=== PATIENT | male | born 1955 | race Caucasian/White ===

== ENCOUNTER 2016-11-01 19:33 | Emergency (ER) | payer OTHER ==
[~2016-11-01] VITALS: Ht 177.8 cm; Wt 82.1 kg
[~2016-11-01 19:33] MED LIST: ATIVAN1 MG PO; CARAFATE1 G1 PO; DULOXETINE HCL60 MG PO; HYDROCODONE BIT1 T11 PO; LORAZEPAM1 MG PO; METOCLOPRAMIDE10 M1 PO; PREDNICOT20 MG PO; PRILOSEC20 MG PO; ZITHROMAX Z PA250 MG PO
[2016-11-01] MEDS ORDERED: VITAMIN D50000 I3 PO (19:45)
[2016-11-01] MEDS ORDERED: LISINOPRIL30 MG PO (19:45)
[2016-11-01 20:32] LABS: BASO # 0.1 10*3/uL (0.0-0.1); BASO % 0.7 % (0.0-1.0); EOS # 0.3 10*3/uL (0.0-0.4); EOS % 2.1 % (1.0-4.0); HEMOGLOBIN 14.7 g/dl (14.0-18.0); IG # 0.1 10*3/uL (0.0-0.1); LYMPH # 4.9 10*3/uL (1.3-4.4); LYMPH % 40.2 % (27.0-41.0); MEAN CELL VOLUME 89.6 fl (80.0-94.0); MEAN CORPUSCULAR HGB 30.6 pg (27.0-31.0); MEAN CORPUSCULAR HGB CONC 34.2 g/dl (33.0-37.0); MEAN PLATELET VOLUME 10.3 fl (9.6-12.3); MONO # 0.7 10*3/uL (0.1-1.0); NEUT # 6.1 10*3/uL (2.3-7.9); NEUT % 50.5 % (47.0-73.0); PLATELET COUNT AUTOMATED 304 10*3/uL (130-400); RED CELL DISTRI WIDTH 12.6 % (0-14.5); WHITE BLOOD COUNT 12.1 10*3/uL (4.8-10.8)
[2016-11-01 20:46] LABS: BUN 11 mg/dl (7-24); CARBON DIOXIDE 25 mmol/L (21-32); CHLORIDE 101 mmol/L (98-107); CPK 241 U/L (39-308); EST GLOM FILT AFRICAN AMERICAN > 60 ml/min; GLUCOSE 96 mg/dL (65-99); POTASSIUM 3.7 mmol/L (3.5-5.1); SODIUM 138 mmol/L (136-145)
[2016-11-01 21:31] LABS: BILIRUBIN NEGATIVE (NEGATIVE); BLOOD NEGATIVE (NEGATIVE); CLARITY CLEAR (CLEAR); COLOR YELLOW (YELLOW); GLUCOSE NEGATIVE (NEGATIVE); KETONE NEGATIVE (NEGATIVE); LEUKO ESTERASE NEGATIVE (NEGATIVE); NITRITE NEGATIVE (NEGATIVE); PH 5.5 (5.0-9.0); PROTEIN NEGATIVE (NEGATIVE); UROBILINOGEN 0.2 E.U./dl (0.2-1.0)
[2016-11-01 21:38] LABS: MUCOUS TRACE; RBC 0-2 rbc/hpf (0-2); URINE REFLEX COMMENT NO (NO)
[2016-11-01] MEDS ORDERED: ROBAXIN500 M1 PO (21:45)
[2016-11-06] MEDS ORDERED: ATIVAN1 MG PO (05:49)
[2016-11-24] MEDS ORDERED: BAYER ASPIRIN C81 MG PO (20:45)
[2016-11-24] MEDS ORDERED: ZYRTEC10 M3 PO (20:45)
[2016-11-24] MEDS ORDERED: PRINIVIL10 MG PO (20:45)
[2016-11-24] MEDS ORDERED: VISTARIL50 MG PO (20:46)
[2016-11-24] MEDS ORDERED: REGLAN10 M1 PO (20:46)
[2016-11-24] MEDS ORDERED: CYMBALTA60 MG PO (20:46)
[2016-11-24] MEDS ORDERED: LOPRESSOR25 MG PO (22:56)
[2016-11-24] MEDS ORDERED: ATIVAN1 MG PO (22:56)
== END 2016-11-01 21:48 | disposition home or self-care (01) ==
LOC: ED 19:33
PROVIDERS: Emergency Medicine
DX: S39.012A Strain of muscle, fascia and tendon of lower back, initial encounter (principal); F17.200 Nicotine dependence, unspecified, uncomplicated; K21.9 Gastro-esophageal reflux disease without esophagitis; Z98.890 Other specified postprocedural states; Z88.0 Allergy status to penicillin; X58.XXXA Exposure to other specified factors, initial encounter; Y93.89 Activity, other specified; Y92.89 Other specified places as the place of occurrence of the external cause; Y99.9 Unspecified external cause status

== ENCOUNTER 2017-03-03 11:35 | Inpatient (IN) | payer OTHER ==
[2017-03-03] VITALS (7 sets, daily range): BP systolic 119–132; BP diastolic 60–91
[~2017-03-03] VITALS: Ht 180.3 cm; Wt 80.8 kg
--- NOTE | ~2017-03-03 | CON ---
[place], [place] REPORT OF CONSULTATION NAME: KERI LYNNE UNIT #: [id number] ROOM: 411 DOCTOR: MARYLOU DE LA CRUZ MD BIRTHDATE: [birth year] DOS: 03/04/2017 PSYCHIATRIC CONSULT CHIEF COMPLAINT: "I just have so much anxiety and depression." HISTORY OF PRESENT ILLNESS: This is a 61-year-old white male who was admitted due to significant chest pain, with shortness of breath and diaphoresis. The patient has been worked up organically and the workup so far to date has been negative. The patient does endorse significant depression with poor sleep and appetite, energy, anhedonia, hopeless, helpless feelings, crying spells. He also has significant panic attacks that occur with substernal chest pain, arm tingling, shortness of breath, diaphoresis and a sense of impending doom. The patient has been actively seeing Dr. Darion Reyes as a counselor and has most recently been placed on Cymbalta 60 mg a day and hydroxyzine. He reports these meds have been ineffective, though controlling the symptomatology. He reports multiple stressors including having found his son in 2010 of an apparent suicide. 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 PAST MEDICAL HISTORY: Remarkable for hypertension, depression, GERD, palpitations. MENTAL STATUS: He is alert and oriented to person, place, and time. Mood is depressed with anxious overtones. There is no hypomania or eulalio. There are no psychotic symptoms. Memory is relatively fully intact. DIAGNOSES: Major depression recurrent and panic disorder. PLAN: I will increase his Cymbalta from 60 mg at bedtime to 30 mg in the morning and 60 mg at night to attempt to maximize potential benefit. Maintain the hydroxyzine for now, may want to consider low dose Klonopin, although I do tend to avoid benzos. He reports having an appointment with Dr. Darion Reyes on 03/30/2017. He may want to call the office to see if this can be moved up any sooner. MARYLOU DE LA CRUZ MD CM:CONSTR:REPORT OF CONSULTATION [id number] 03/05/17 0024 interface
--- NOTE | ~2017-03-03 | EKG ---
[place], [place] ELECTROCARDIOGRAM REPORT NAME: KERI LYNNE UNIT #: [id number] ROOM: 411 DOCTOR: LYNSEY ARREDONDO MD BIRTHDATE: [birth year] DOS: 03/03/2017 TIME: 1235. FINDINGS: Normal sinus rhythm with leftward axis. Normal EKG. LYNSEY ARREDONDO MD CM:EKGRPT:ELECTROCARDIOGRAM REPORT [id number] LYNSEY ARREDONDO MD
[~2017-03-03 11:35] MED LIST changes: +BAYER ASPIRIN C81 MG PO; +CYMBALTA60 MG PO; +LISINOPRIL30 MG PO; +LOPRESSOR25 MG PO; +PRINIVIL10 MG PO; +REGLAN10 M1 PO; +ROBAXIN500 M1 PO; +VISTARIL50 MG PO; +VITAMIN D50000 I3 PO; +ZYRTEC10 M3 PO
[2017-03-03 12:45] LABS: BASO # 0.1 10*3/uL (0.0-0.1); BASO % 0.9 % (0.0-1.0); EOS # 0.3 10*3/uL (0.0-0.4); EOS % 2.1 % (1.0-4.0); HEMATOCRIT 38.5 % (42.0-52.0); HEMOGLOBIN 13.3 g/dl (14.0-18.0); IG # 0.2 10*3/uL (0.0-0.1); LYMPH # 3.9 10*3/uL (1.3-4.4); LYMPH % 30.7 % (27.0-41.0); MEAN CELL VOLUME 88.7 fl (80.0-94.0); MEAN CORPUSCULAR HGB 30.6 pg (27.0-31.0); MEAN CORPUSCULAR HGB CONC 34.5 g/dl (33.0-37.0); MEAN PLATELET VOLUME 9.5 fl (9.6-12.3); MONO # 0.7 10*3/uL (0.1-1.0); MONO % 5.6 % (3.0-9.0); NEUT # 7.6 10*3/uL (2.3-7.9); NEUT % 59.5 % (47.0-73.0); PLATELET COUNT AUTOMATED 330 10*3/uL (130-400); RED BLOOD COUNT 4.34 10*6/uL (4.50-5.90); RED CELL DISTRI WIDTH 12.8 % (0-14.5); WHITE BLOOD COUNT 12.8 10*3/uL (4.8-10.8)
[2017-03-03 13:02] LABS: ALBUMIN 3.7 gm/dl (3.1-4.5); ALKALINE PHOSPHATASE 96 U/L (45-117); BILIRUBIN, TOTAL 0.3 mg/dl (0.2-1.0); BUN 17 mg/dl (7-24); CARBON DIOXIDE 22 mmol/L (21-32); CHLORIDE 101 mmol/L (98-107); EST GLOM FILT AFRICAN AMERICAN 51 ml/min; GLUCOSE 79 mg/dL (65-99); MAGNESIUM 1.1 mg/dL (1.5-2.1); POTASSIUM 4.4 mmol/L (3.5-5.1); SGOT/AST 31 IU/L (3-35); SGPT/ALT 26 U/L (12-78); SODIUM 134 mmol/L (136-145); TOTAL PROTEIN 7.4 gm/dL (6.4-8.2)
[2017-03-03 13:06] LABS: TROPONIN I < 0.015 ng/ml (<0.045)
[2017-03-03] MEDS ORDERED: VITAMIN D22000 UNIT PO (18:47)
[2017-03-03] MEDS ORDERED: HYDR25T PO (18:48)
[2017-03-03] MEDS ORDERED: CLARITIN10 MG PO (18:48)
[2017-03-04] VITALS: BP 127/90
[2017-03-04 06:58] LABS: BASO # 0.1 10*3/uL (0.0-0.1); BASO % 0.9 % (0.0-1.0); EOS # 0.5 10*3/uL (0.0-0.4); EOS % 3.5 % (1.0-4.0); HEMATOCRIT 35.1 % (42.0-52.0); HEMOGLOBIN 12.2 g/dl (14.0-18.0); IG # 0.1 10*3/uL (0.0-0.1); LYMPH # 4.4 10*3/uL (1.3-4.4); LYMPH % 34.3 % (27.0-41.0); MEAN CELL VOLUME 88.4 fl (80.0-94.0); MEAN CORPUSCULAR HGB 30.7 pg (27.0-31.0); MEAN CORPUSCULAR HGB CONC 34.8 g/dl (33.0-37.0); MEAN PLATELET VOLUME 9.8 fl (9.6-12.3); MONO # 0.9 10*3/uL (0.1-1.0); MONO % 6.8 % (3.0-9.0); NEUT # 6.8 10*3/uL (2.3-7.9); NEUT % 53.4 % (47.0-73.0); PLATELET COUNT AUTOMATED 350 10*3/uL (130-400); RED BLOOD COUNT 3.97 10*6/uL (4.50-5.90); WHITE BLOOD COUNT 12.8 10*3/uL (4.8-10.8)
[2017-03-04 07:25] LABS: HEMOGLOBIN A1c 5.7 % (4.8-5.6)
[2017-03-04 07:32] LABS: ALBUMIN 3.4 gm/dl (3.1-4.5); BILIRUBIN, TOTAL 0.5 mg/dl (0.2-1.0); MAGNESIUM 2.6 mg/dL (1.5-2.1); PHOSPHOROUS 2.6 mg/dL (2.5-4.9); POTASSIUM 4.4 mmol/L (3.5-5.1); TOTAL PROTEIN 6.9 gm/dL (6.4-8.2)
[2017-03-04 07:33] LABS: PROTHROMBIN TIME 10.1 SECONDS (9.0-12.4)
[2017-03-04 07:39] LABS: FREE T4 1.13 ng/dl (0.76-1.46); THYROID STIM HORMONE (HS) 1.55 uIU/ml (0.358-4.75)
[2017-03-04 08:00] VITALS: BP 109/71; BP 120/70
[2017-03-04 09:18] LABS: FOLIC ACID 9.59 ng/mL (>5.38); VITAMIN D, 25-HYDROXY 34.1 ng/mL (30-100)
[2017-03-04] MEDS ORDERED: DULOXETINE HCL30 MG PO (11:07)
== END 2017-03-04 12:30 | disposition home or self-care (01) | DRG 683 ==
LOC: ED 11:35 → 4E 16:08 → EDHOLD 16:08 → 4E 16:46
PROVIDERS: Emergency Medicine; Internal Medicine
DX: N17.0 Acute kidney failure with tubular necrosis (principal); E87.1 Hypo-osmolality and hyponatremia; R65.10 Systemic inflammatory response syndrome (SIRS) of non-infectious origin without acute organ dysfunction; F33.9 Major depressive disorder, recurrent, unspecified; E83.42 Hypomagnesemia; F41.9 Anxiety disorder, unspecified; D64.9 Anemia, unspecified; K21.9 Gastro-esophageal reflux disease without esophagitis; I10 Essential (primary) hypertension; F41.0 Panic disorder [episodic paroxysmal anxiety]; F17.210 Nicotine dependence, cigarettes, uncomplicated; Z71.6 Tobacco abuse counseling; Z88.0 Allergy status to penicillin; Z79.82 Long term (current) use of aspirin; Z79.899 Other long term (current) drug therapy

== ENCOUNTER 2018-01-08 20:22 | Emergency (ER) | payer OTHER ==
[~2018-01-08] VITALS: Ht 177.8 cm; Wt 93.9 kg
[~2018-01-08 20:22] MED LIST changes: +CLARITIN10 MG PO; +DULOXETINE HCL30 MG PO; +HYDR25T PO; +VITAMIN D22000 UNIT PO
[2018-01-08 21:25] LABS: HEMATOCRIT 42.6 % (42.0-52.0); HEMOGLOBIN 14.8 g/dl (14.0-18.0); MEAN CELL VOLUME 85.9 fl (80.0-94.0); MEAN CORPUSCULAR HGB 29.8 pg (27.0-31.0); MEAN CORPUSCULAR HGB CONC 34.7 g/dl (33.0-37.0); MEAN PLATELET VOLUME 10.3 fl (9.6-12.3); PLATELET COUNT AUTOMATED 376 10*3/uL (130-400); RED BLOOD COUNT 4.96 10*6/uL (4.50-5.90); RED CELL DISTRI WIDTH 13.9 % (0-14.5); WHITE BLOOD COUNT 16.9 10*3/uL (4.8-10.8)
[2018-01-08 21:44] LABS: ALBUMIN 4.1 gm/dl (3.1-4.5); CREATININE 1.72 mg/dL (0.70-1.30); POTASSIUM 3.9 mmol/L (3.5-5.1); TOTAL PROTEIN 8.2 gm/dL (6.4-8.2)
[2018-01-08 21:59] LABS: ATYPICAL LYMPHS 1 % (0-0); PLATELET SUFFICIENCY NORMAL (NORMAL); TOTAL CELLS COUNTED 100 #CELLS
== END 2018-01-08 23:26 | disposition left against medical advice (07) ==
LOC: ED 20:22
PROVIDERS: Physician Assistant
DX: E86.0 Dehydration (principal); R30.0 Dysuria; F17.200 Nicotine dependence, unspecified, uncomplicated; Z88.0 Allergy status to penicillin; Z53.21 Procedure and treatment not carried out due to patient leaving prior to being seen by health care provider

== ENCOUNTER 2018-01-10 19:58 | Emergency (ER) | payer OTHER ==
[~2018-01-10] VITALS: Ht 177.8 cm; Wt 93.9 kg
[2018-01-10 20:46] LABS: BASO # 0.1 10*3/uL (0.0-0.1); BASO % 0.5 % (0.0-1.0); EOS # 0.4 10*3/uL (0.0-0.4); EOS % 2.1 % (1.0-4.0); HEMATOCRIT 42.4 % (42.0-52.0); HEMOGLOBIN 14.8 g/dl (14.0-18.0); LYMPH # 4.6 10*3/uL (1.3-4.4); LYMPH % 24.5 % (27.0-41.0); MEAN CELL VOLUME 84.8 fl (80.0-94.0); MEAN CORPUSCULAR HGB 29.6 pg (27.0-31.0); MEAN CORPUSCULAR HGB CONC 34.9 g/dl (33.0-37.0); MEAN PLATELET VOLUME 10.3 fl (9.6-12.3); MONO # 1.3 10*3/uL (0.1-1.0); MONO % 7.2 % (3.0-9.0); NEUT # 12.1 10*3/uL (2.3-7.9); NEUT % 64.8 % (47.0-73.0); PLATELET COUNT AUTOMATED 395 10*3/uL (130-400); RED CELL DISTRI WIDTH 13.8 % (0-14.5); WHITE BLOOD COUNT 18.7 10*3/uL (4.8-10.8)
[2018-01-10 21:01] LABS: ALBUMIN 4.1 gm/dl (3.1-4.5); CREATININE 1.6 mg/dL (0.70-1.30); POTASSIUM 4.2 mmol/L (3.5-5.1); TOTAL PROTEIN 8.2 gm/dL (6.4-8.2)
[2018-01-10 21:21] LABS: BILIRUBIN NEGATIVE (NEGATIVE); BLOOD NEGATIVE (NEGATIVE); CLARITY CLEAR (CLEAR); COLOR YELLOW (YELLOW); GLUCOSE NEGATIVE (NEGATIVE); KETONE NEGATIVE (NEGATIVE); LEUKO ESTERASE NEGATIVE (NEGATIVE); NITRITE NEGATIVE (NEGATIVE); PH 5.5 (5.0-9.0); UROBILINOGEN 0.2 E.U./dl (0.2-1.0)
[2018-01-10 21:46] LABS: BACTERIA TRACE
[2018-01-10] MEDS ORDERED: PROSCAR5 M1 PO (22:07)
[2018-01-10] MEDS ORDERED: FLOMAX0.4 MG PO (22:07)
[2018-01-10] MEDS ORDERED: CIPRO500 MG PO (22:07)
== END 2018-01-10 22:16 | disposition home or self-care (01) ==
LOC: ED 19:58
PROVIDERS: Physician Assistant
DX: N41.9 Inflammatory disease of prostate, unspecified (principal); F17.200 Nicotine dependence, unspecified, uncomplicated; Z79.899 Other long term (current) drug therapy; Z79.82 Long term (current) use of aspirin; Z88.0 Allergy status to penicillin; Z87.442 Personal history of urinary calculi

== ENCOUNTER → 2018-01-16 | Outpatient (CLI) | payer OTHER ==
[~2018-01-16] MED LIST changes: +CIPRO500 MG PO; +FLOMAX0.4 MG PO; +PROSCAR5 M1 PO
[2018-01-16 15:22] LABS: BASO # 0.1 10*3/uL (0.0-0.1); BASO % 0.8 % (0.0-1.0); EOS # 0.4 10*3/uL (0.0-0.4); HEMATOCRIT 36.9 % (42.0-52.0); HEMOGLOBIN 12.6 g/dl (14.0-18.0); LYMPH # 2.9 10*3/uL (1.3-4.4); LYMPH % 21.9 % (27.0-41.0); MEAN CELL VOLUME 87.6 fl (80.0-94.0); MEAN CORPUSCULAR HGB 29.9 pg (27.0-31.0); MEAN CORPUSCULAR HGB CONC 34.1 g/dl (33.0-37.0); MONO # 0.9 10*3/uL (0.1-1.0); MONO % 6.5 % (3.0-9.0); NEUT # 8.7 10*3/uL (2.3-7.9); NEUT % 66.4 % (47.0-73.0); PLATELET COUNT AUTOMATED 373 10*3/uL (130-400); RED BLOOD COUNT 4.21 10*6/uL (4.50-5.90); RED CELL DISTRI WIDTH 14.3 % (0-14.5); WHITE BLOOD COUNT 13.1 10*3/uL (4.8-10.8)
[2018-01-16 15:49] LABS: ALBUMIN 3.6 gm/dl (3.1-4.5); CREATININE 1.48 mg/dL (0.70-1.30); POTASSIUM 4.3 mmol/L (3.5-5.1); TOTAL PROTEIN 7.4 gm/dL (6.4-8.2)
== END | disposition home or self-care (01) ==
LOC: LAB 14:56 → US 15:00
PROVIDERS: Urology
DX: Z12.5 Encounter for screening for malignant neoplasm of prostate (principal); N50.3 Cyst of epididymis; I10 Essential (primary) hypertension; D40.0 Neoplasm of uncertain behavior of prostate; Z90.79 Acquired absence of other genital organ(s)

== ENCOUNTER → 2018-02-17 | Outpatient (CLI) | payer OTHER | END | disposition home or self-care (01) | LOC: LAB 10:16 | DX: M25.561 Pain in right knee (principal); R60.9 Edema, unspecified ==

== ENCOUNTER 2018-04-05 18:51 | Emergency (ER) | payer OTHER ==
[~2018-04-05] VITALS: Ht 180.3 cm; Wt 95.7 kg
--- NOTE | ~2018-04-05 | EKG ---
[place], [place] ELECTROCARDIOGRAM REPORT NAME: KERI LYNNE UNIT #: [id number] ROOM: DOCTOR: ROSALINA KRUEGER MD BIRTHDATE: [birth year] DOS: 04/05/2018 TIME: 2004 hours. FINDINGS: 1. Normal sinus rhythm with 80 beats per minute. 2. Moderate left axis deviation. 3. No previous tracing is available for comparison. ROSALINA KRUEGER MD CM:EKGRPT:ELECTROCARDIOGRAM REPORT [id number] 1400 ROSALINA KRUEGER MD
[2018-04-05 20:18] LABS: BASO # 0.1 10*3/uL (0.0-0.1); BASO % 0.6 % (0.0-1.0); EOS # 0.2 10*3/uL (0.0-0.4); EOS % 1.8 % (1.0-4.0); HEMATOCRIT 37.9 % (42.0-52.0); HEMOGLOBIN 12.8 g/dl (14.0-18.0); LYMPH # 3.9 10*3/uL (1.3-4.4); LYMPH % 30.6 % (27.0-41.0); MEAN CELL VOLUME 89.8 fl (80.0-94.0); MEAN CORPUSCULAR HGB 30.3 pg (27.0-31.0); MEAN CORPUSCULAR HGB CONC 33.8 g/dl (33.0-37.0); MEAN PLATELET VOLUME 9.8 fl (9.6-12.3); MONO # 0.9 10*3/uL (0.1-1.0); MONO % 6.8 % (3.0-9.0); NEUT # 7.5 10*3/uL (2.3-7.9); NEUT % 58.9 % (47.0-73.0); PLATELET COUNT AUTOMATED 306 10*3/uL (130-400); RED BLOOD COUNT 4.22 10*6/uL (4.50-5.90); RED CELL DISTRI WIDTH 13.9 % (0-14.5); WHITE BLOOD COUNT 12.8 10*3/uL (4.8-10.8)
[2018-04-05 20:34] LABS: ALBUMIN 3.4 gm/dl (3.1-4.5); ALKALINE PHOSPHATASE 105 U/L (45-117); BUN 14 mg/dl (7-24); CHLORIDE 97 mmol/L (98-107); LIPASE 184 U/L (73-393); POTASSIUM 3.6 mmol/L (3.5-5.1); SGOT/AST 28 IU/L (3-35); SGPT/ALT 32 U/L (12-78); SODIUM 132 mmol/L (136-145); TOTAL PROTEIN 7.3 gm/dL (6.4-8.2); TROPONIN I < 0.015 ng/ml (<0.045)
[2018-04-05] MEDS ORDERED: PROAIR HFA8.5 GM INH (20:47)
[2018-04-05] MEDS ORDERED: ZITHROMAX250 MG PO (20:47)
[2018-04-25] MEDS ORDERED: CYMBALTA60 MG PO (09:47)
[2018-04-25] MEDS ORDERED: FLONASE ALLERG9.9 ML NAS (09:47)
[2018-04-25] MEDS ORDERED: PILOCARPINE HCL5 MG PO (09:48)
[2018-04-25] MEDS ORDERED: TRAZODONE50 MG PO (09:49)
[2018-04-25] MEDS ORDERED: TOPROL XL50 M1 PO (09:49)
[2018-04-25] MEDS ORDERED: OHM ALLERGY REL10 MG PO (09:50)
== END 2018-04-05 20:59 | disposition home or self-care (01) ==
LOC: ED 18:51
PROVIDERS: Physician Assistant
DX: J15.9 Unspecified bacterial pneumonia (principal); K21.9 Gastro-esophageal reflux disease without esophagitis; Z88.0 Allergy status to penicillin; Z79.899 Other long term (current) drug therapy; Z79.82 Long term (current) use of aspirin

== ENCOUNTER → 2018-04-28 | Day surgery (SDC) | payer OTHER ==
[~2018-04-28] VITALS: Ht 180.3 cm; Wt 97.5 kg
[~2018-04-28] MED LIST changes: +FLONASE ALLERG9.9 ML NAS; +LEVAQUIN750 M1 PO; +MAGNESIUM OXID400 MG PO; +OHM ALLERGY REL10 MG PO; +PILOCARPINE HCL5 MG PO; +PROAIR HFA8.5 GM INH; +TOPROL XL50 M1 PO; +TRAZODONE50 MG PO; +ZITHROMAX250 MG PO
--- NOTE | ~2018-04-28 | PROC NOTE ---
[place], [place] PROCEDURE NOTE [id number] UNIT #: [id number] ROOM: DOCTOR: DREW ANDERSON MD BIRTHDATE: [birth year] DOS: 04/28/2018 PREOPERATIVE DIAGNOSES: History of gastroesophageal reflux disease, dry mouth. POSTOPERATIVE DIAGNOSIS: Normal EGD. PROCEDURE: EGD. ENDOSCOPIST: Drew Anderson MD PACKER AND CARRY OUT: None. ANESTHESIA: MAC. INDICATIONS: This is a 62-year-old gentleman who has a history of GERD and is complaining of a dry mouth, who has been referred for a repeat EGD. The procedure and its complications were explained to the patient in detail preoperatively. Complications that were discussed included but were not limited to bleeding, missed lesions. Esophageal and stomach perforation. He agreed to proceed. DESCRIPTION OF PROCEDURE: After identifying the patient, the patient was brought to the endoscopy suite and placed in the left lateral position. After IV sedation was administered, a bite block was placed and a time-out procedure was called. An adult, esophagogastroduodenoscope was introduced into the mouth and advanced sequentially into the pharynx, esophagus, stomach and the first 2 parts of the duodenum. The scope was then withdrawn and retroflexed in the stomach to visualize the entire stomach. The scope was then withdrawn and the patient was brought back to the recovery room in stable fashion. The entirety of the esophagus, stomach and the first 2 parts of the duodenum were carefully examined, but there were no obvious lesions that could be seen. The patient tolerated the procedure well. There were no complications. Dr. Drew Anderson, the attending endoscopist, was present throughout the operating case. Drew Anderson MD CM:PROCNOTE:PROCEDURE NOTE [id number] DREW ANDERSON MD
[2018-04-28 07:34] VITALS: BP 133/88
[2018-04-28 08:03] VITALS: BP 117/71
[2018-04-28 08:15] VITALS: BP 114/84
[2018-04-28 08:28] VITALS: BP 121/81
== END | disposition home or self-care (01) ==
LOC: SDC 04-25 08:00
DX: K21.9 Gastro-esophageal reflux disease without esophagitis (principal); Z88.0 Allergy status to penicillin; I10 Essential (primary) hypertension; F41.9 Anxiety disorder, unspecified; E78.5 Hyperlipidemia, unspecified; Z79.899 Other long term (current) drug therapy; Z90.49 Acquired absence of other specified parts of digestive tract; F17.210 Nicotine dependence, cigarettes, uncomplicated; F32.9 Major depressive disorder, single episode, unspecified

== ENCOUNTER 2018-05-26 08:11 | Emergency (ER) | payer OTHER ==
[~2018-05-26] VITALS: Ht 180.3 cm; Wt 95.3 kg
--- NOTE | ~2018-05-26 | EKG ---
[place], [place] ELECTROCARDIOGRAM REPORT NAME: KERI LYNNE UNIT #: [id number] ROOM: DOCTOR: EPIPHANY DRAFT REPORT BIRTHDATE: [birth year] [facility] Test Date: 2018-05-26 Test Time: 08:36:45 Pat Name: KERI LYNNE Department: Room: Gender: Machine Oiler: : 1955 Requested By: LIZZETH TELLO Order Number: [id number] Reading MD: Berlin Perez MD Measurements Intervals [place] Rate: 66 P: 30 AL: 172 QRS: -39 QRSD: 96 T: 24 QT: 444 QTc: 466 Interpretive Statements Sinus rhythm Left axis deviation Low voltage, precordial leads RSR' in V1 or V2, right VCD or RVH Baseline wander in lead(s) V3,V4,V6 Electronically Signed On 05-26-2018 11:04:33 PDT by Berlin Perez MD CM:EKGRPT:ELECTROCARDIOGRAM REPORT [id number] 1104 LIZZETH VIRK DRAFT REPORT LIZZETH TELLO DO
[~2018-05-26 08:11] MED LIST changes: -LEVAQUIN750 M1 PO; -MAGNESIUM OXID400 MG PO
[2018-05-26 08:46] LABS: BASO # 0.1 10*3/uL (0.0-0.1); BASO % 1.2 % (0.0-1.0); EOS # 0.6 10*3/uL (0.0-0.4); EOS % 5.1 % (1.0-4.0); HEMATOCRIT 37.9 % (42.0-52.0); HEMOGLOBIN 12.9 g/dl (14.0-18.0); LYMPH # 3.5 10*3/uL (1.3-4.4); LYMPH % 31.1 % (27.0-41.0); MEAN CELL VOLUME 88.1 fl (80.0-94.0); MEAN PLATELET VOLUME 10.4 fl (9.6-12.3); MONO # 0.9 10*3/uL (0.1-1.0); MONO % 7.9 % (3.0-9.0); NEUT # 5.9 10*3/uL (2.3-7.9); NEUT % 53.2 % (47.0-73.0); PLATELET COUNT AUTOMATED 345 10*3/uL (130-400); RED CELL DISTRI WIDTH 14.1 % (0-14.5); WHITE BLOOD COUNT 11.1 10*3/uL (4.8-10.8)
[2018-05-26 08:56] LABS: ACT PARTIAL THROMBO TIME 26.9 SECONDS (20.8-31.5)
[2018-05-26 09:03] LABS: ALBUMIN 3.3 gm/dl (3.1-4.5); ALKALINE PHOSPHATASE 95 U/L (45-117); BUN 14 mg/dl (7-24); CHLORIDE 100 mmol/L (98-107); CREATININE 1.55 mg/dL (0.70-1.30); LIPASE 152 U/L (73-393); POTASSIUM 3.3 mmol/L (3.5-5.1); SGOT/AST 30 IU/L (3-35); SGPT/ALT 21 U/L (12-78); SODIUM 136 mmol/L (136-145); TOTAL PROTEIN 6.8 gm/dL (6.4-8.2)
[2018-05-26 09:06] LABS: TROPONIN I < 0.015 ng/ml (<0.045)
[2018-05-26] MEDS ORDERED: LEVAQUIN750 M1 PO (09:37)
[2018-05-26] MEDS ORDERED: MAGNESIUM OXID400 MG PO (09:37)
== END 2018-05-26 09:46 | disposition left against medical advice (07) ==
LOC: ED 08:11
PROVIDERS: Emergency Medicine
DX: J18.9 Pneumonia, unspecified organism (principal); R07.89 Other chest pain; E83.42 Hypomagnesemia; F17.200 Nicotine dependence, unspecified, uncomplicated; K21.9 Gastro-esophageal reflux disease without esophagitis; I10 Essential (primary) hypertension; Z79.899 Other long term (current) drug therapy; Z79.82 Long term (current) use of aspirin; Z88.0 Allergy status to penicillin

== ENCOUNTER → 2018-07-26 | Outpatient (CLI) | payer OTHER ==
[~2018-07-26] MED LIST changes: +COZAAR50 M1 PO; +FLAGYL500 MG PO; +IBU800 MG PO; +K-LOR 20MEQ20 ME1 PO; +LASIX40 MG PO; +LEVAQUIN750 M1 PO; +MAGNESIUM OXID400 MG PO; +METOPROLOL TART50 M1 PO; +PRILOSEC20 M1 PO
--- NOTE | ~2018-07-26 | ST ---
[place], [place] EXERCISE STRESS TEST REPORT NAME: KERI LYNNE [facility] #: [id number] UNIT #: [id number] ROOM: DOCTOR: LYNSEY ARREDONDO MD BIRTHDATE: [birth year] DOS: 07/26/2018 EXERCISE MYOCARDIAL PERFUSION STRESS TEST REASON FOR STRESS TEST: Dyspnea with exertion, cigarette abuse. Referred by Oziel WHYTE. PROTOCOL: The patient walked 3 minutes 35 seconds on the first stage of a Jasiel protocol stress test and achieved a maximum heart rate of 146, which represented 94% of his maximum predicted heart rate at a workload of 5 mets. He stopped for dyspnea and fatigue. He did not have any chest pain. The resting electrocardiogram was normal. No diagnostic changes occurred with exercise. One minute prior to completion of the exercise protocol, he was given radionuclide intravenously. The patient's resting blood pressure 110/80, [place]ul[place] to 152/80. IMPRESSION: 1. Limited exercise capacity for age without chest pain or diagnostic electrocardiographic changes. 2. Radionuclide injected. Please see the separate imaging report for further details of the patient's stress test results. 3. Normal pulse oximetry throughout the test and in recovery. LYNSEY ARREDONDO MD CM:STRESS:EXERCISE STRESS TEST REPORT [id number] LYNSEY ARREDONDO MD
== END | disposition home or self-care (01) ==
LOC: CARD 07:53
DX: R07.2 Precordial pain (principal); R91.8 Other nonspecific abnormal finding of lung field; R14.0 Abdominal distension (gaseous); F17.210 Nicotine dependence, cigarettes, uncomplicated

== ENCOUNTER 2018-09-22 10:56 | Emergency (ER) | payer OTHER ==
[~2018-09-22] VITALS: Ht 180.3 cm; Wt 98.0 kg
[~2018-09-22 10:56] MED LIST changes: -FLAGYL500 MG PO; -IBU800 MG PO
[2018-09-22] MEDS ORDERED: IBU800 MG PO (11:28)
[2018-09-22] MEDS ORDERED: FLAGYL500 MG PO (11:28)
[2018-09-22] MEDS ORDERED: CIPRO500 MG PO (11:28)
== END 2018-09-22 11:40 | disposition home or self-care (01) ==
LOC: ED 10:56
DX: L02.215 Cutaneous abscess of perineum (principal); I10 Essential (primary) hypertension; K21.9 Gastro-esophageal reflux disease without esophagitis; F17.200 Nicotine dependence, unspecified, uncomplicated; Z88.0 Allergy status to penicillin; Z79.899 Other long term (current) drug therapy; Z79.82 Long term (current) use of aspirin

== ENCOUNTER 2019-02-27 09:53 | Emergency (ER) | payer OTHER ==
[~2019-02-27] VITALS: Ht 177.8 cm; Wt 94.3 kg
[~2019-02-27 09:53] MED LIST changes: +FLAGYL500 MG PO; +IBU800 MG PO
[2019-02-27 10:57] LABS: BILIRUBIN NEGATIVE (NEGATIVE); BLOOD NEGATIVE (NEGATIVE); CLARITY CLEAR (CLEAR); COLOR YELLOW (YELLOW); GLUCOSE NEGATIVE (NEGATIVE); KETONE NEGATIVE (NEGATIVE); LEUKO ESTERASE NEGATIVE (NEGATIVE); NITRITE NEGATIVE (NEGATIVE); UROBILINOGEN 0.2 E.U./dl (0.2-1.0)
[2019-02-27 11:09] LABS: RBC 0-2 rbc/hpf (0-2)
== END 2019-02-27 12:05 | disposition home or self-care (01) ==
LOC: ED 09:53
PROVIDERS: Emergency Medicine
DX: R10.9 Unspecified abdominal pain (principal); M54.9 Dorsalgia, unspecified; K21.9 Gastro-esophageal reflux disease without esophagitis; I10 Essential (primary) hypertension; Z88.0 Allergy status to penicillin; Z79.899 Other long term (current) drug therapy; Z79.82 Long term (current) use of aspirin; Z87.891 Personal history of nicotine dependence

== ENCOUNTER 2019-08-07 15:12 | Inpatient (IN) | payer MEDICARE, MEDICAID ==
[2019-08-07] VITALS (8 sets, daily range): BP systolic 110–126; BP diastolic 70–89
[~2019-08-07] VITALS: Ht 177.8 cm; Wt 88.5 kg
--- NOTE | ~2019-08-07 | EKG ---
[place], [place] ELECTROCARDIOGRAM REPORT NAME: KERI LYNNE UNIT #: [id number] ROOM: 520 DOCTOR: АННА DRAFT REPORT BIRTHDATE: [address] 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
--- NOTE | ~2019-08-07 | EKG ---
[place], [place] ELECTROCARDIOGRAM REPORT NAME: KERI LYNNE UNIT #: [id number] ROOM: 520 DOCTOR: АННА DRAFT REPORT BIRTHDATE: [birth year] [facility] Test Date: 2019-08-07 Test Time: 23:27:49 Pat Name: KERI LYNNE Department: Room: 520 1 Gender: M Ticket Counter: Pham Bonds : 1955 Requested By: SUZI FLETCHER Order Number: [id number] Reading MD: Martell Boyd MD Measurements Intervals [place] Rate: 81 P: 60 [place]: 188 QRS: -60 QRSD: 92 T: 51 QT: 413 QTc: 480 Interpretive Statements Sinus rhythm Inferior infarct, old Left axis Compared to ECG 07/01/2018 20:57:29 Myocardial infarct finding now present Electronically Signed On 08-08-2019 6:07:25 PDT by Martell Boyd MD CM:EKGRPT:ELECTROCARDIOGRAM REPORT [id number] SUZI VIRK DRAFT REPORT SUZI FLETCHER DO
--- NOTE | ~2019-08-07 | EKG ---
[place], [place] ELECTROCARDIOGRAM REPORT NAME: KERI LYNNE UNIT #: [id number] ROOM: 520 DOCTOR: АННА DRAFT REPORT BIRTHDATE: [birth year] [facility] Test Date: 2019-08-08 Test Time: 02:16:59 Pat Name: KERI LYNNE Department: Room: 520 1 Gender: M Payment Specialist: Pham Bonds : 1955 Requested By: SUZI FLETCHER Order Number: [id number] Reading MD: Martell Boyd MD Measurements Intervals [place] Rate: 74 P: 47 NC: 179 QRS: -42 QRSD: 92 T: 47 QT: 418 QTc: 464 Interpretive Statements Sinus rhythm Inferior infarct, old Electronically Signed On 08-08-2019 6:07:51 PDT by Martell Boyd MD CM:EKGRPT:ELECTROCARDIOGRAM REPORT [id number] [id number] SUZI VIRK DRAFT REPORT SUZI FLETCHER DO
[2019-08-07 15:51] LABS: BASO # 0.1 10*3/uL (0.0-0.1); BASO % 0.8 % (0.0-1.0); EOS # 0.3 10*3/uL (0.0-0.4); EOS % 1.7 % (1.0-4.0); HEMATOCRIT 45.3 % (42.0-52.0); HEMOGLOBIN 15.1 g/dl (14.0-18.0); LYMPH # 4.6 10*3/uL (1.3-4.4); LYMPH % 28.3 % (27.0-41.0); MEAN CELL VOLUME 90.6 fl (80.0-94.0); MEAN CORPUSCULAR HGB 30.2 pg (27.0-31.0); MEAN CORPUSCULAR HGB CONC 33.3 g/dl (33.0-37.0); MEAN PLATELET VOLUME 10.4 fl (9.6-12.3); MONO # 1.1 10*3/uL (0.1-1.0); MONO % 7.1 % (3.0-9.0); NEUT # 9.9 10*3/uL (2.3-7.9); PLATELET COUNT AUTOMATED 362 10*3/uL (130-400); RED CELL DISTRI WIDTH 14.6 % (0-14.5); WHITE BLOOD COUNT 16.2 10*3/uL (4.8-10.8)
[2019-08-07 15:56] LABS: BILIRUBIN NEGATIVE (NEGATIVE); BLOOD NEGATIVE (NEGATIVE); CLARITY CLEAR (CLEAR); COLOR YELLOW (YELLOW); GLUCOSE NEGATIVE (NEGATIVE); KETONE NEGATIVE (NEGATIVE); LEUKO ESTERASE NEGATIVE (NEGATIVE); NITRITE NEGATIVE (NEGATIVE); UROBILINOGEN 0.2 E.U./dl (0.2-1.0)
[2019-08-07 16:01] LABS: ACT PARTIAL THROMBO TIME 28.8 SECONDS (20.0-32.1); INTERNATIONAL NORM RATIO 0.9 (2.0-3.5)
[2019-08-07 16:05] LABS: BACTERIA TRACE; RBC 0-2 rbc/hpf (0-2); WBC 0-2 wbc/hpf (0-5)
[2019-08-07 16:10] LABS: ALBUMIN 3.8 gm/dl (3.1-4.5); ALKALINE PHOSPHATASE 122 U/L (45-117); BUN 13 mg/dl (7-24); CHLORIDE 102 mmol/L (98-107); CREATININE 1.38 mg/dL (0.70-1.30); LIPASE 192 U/L (73-393); POTASSIUM 3.5 mmol/L (3.5-5.1); SGOT/AST 18 IU/L (3-35); SGPT/ALT 22 U/L (12-78); SODIUM 138 mmol/L (136-145); TROPONIN I < 0.015 ng/ml (<0.045)
[2019-08-07] MEDS ORDERED: IRBESARTAN150 MG PO (21:05)
[2019-08-07] MEDS ORDERED: QUETIAPINE FUMA50 M1 PO (21:05)
[2019-08-07] MEDS ORDERED: HYDROXYZINE HCL25 MG PO (21:05)
[2019-08-07] MEDS ORDERED: VIIBRYD20 M1 PO (21:06)
[2019-08-07] MEDS ORDERED: METOCLOPRAMIDE10 M1 PO (21:06)
[2019-08-07] MEDS ORDERED: TAMSULOSIN HCL0.4 MG PO (21:06)
[2019-08-08] VITALS: BP 122/86
[2019-08-08 07:23] LABS: BASO # 0.1 10*3/uL (0.0-0.1); BASO % 0.7 % (0.0-1.0); EOS # 0.3 10*3/uL (0.0-0.4); EOS % 2.1 % (1.0-4.0); HEMATOCRIT 40.6 % (42.0-52.0); HEMOGLOBIN 13.5 g/dl (14.0-18.0); LYMPH # 3.6 10*3/uL (1.3-4.4); LYMPH % 27.5 % (27.0-41.0); MEAN CELL VOLUME 91.6 fl (80.0-94.0); MEAN CORPUSCULAR HGB 30.5 pg (27.0-31.0); MEAN CORPUSCULAR HGB CONC 33.3 g/dl (33.0-37.0); MEAN PLATELET VOLUME 10.9 fl (9.6-12.3); MONO % 7.8 % (3.0-9.0); NEUT # 7.9 10*3/uL (2.3-7.9); NEUT % 60.4 % (47.0-73.0); PLATELET COUNT AUTOMATED 333 10*3/uL (130-400); RED BLOOD COUNT 4.43 10*6/uL (4.50-5.90); RED CELL DISTRI WIDTH 14.7 % (0-14.5)
[2019-08-08 07:55] LABS: ALBUMIN 3.2 gm/dl (3.1-4.5); ALKALINE PHOSPHATASE 108 U/L (45-117); BUN 11 mg/dl (7-24); CHLORIDE 106 mmol/L (98-107); CHOLESTEROL 176 mg/dL (<200); CREATININE 1.35 mg/dL (0.70-1.30); FREE T4 1.02 ng/dl (0.76-1.46); HDL CHOLESTEROL 33 mg/dl (40-60); LDL CHOLESTEROL 117 mg/dL (9-159); PHOSPHOROUS 2.4 mg/dL (2.5-4.9); POTASSIUM 3.3 mmol/L (3.5-5.1); SGOT/AST 18 IU/L (3-35); SGPT/ALT 18 U/L (12-78); SODIUM 140 mmol/L (136-145); TOTAL PROTEIN 6.8 gm/dL (6.4-8.2); TRIGLYCERIDES 131 mg/dl (<150); VLDL CHOLESTEROL 26 mg/dL (6-40)
[2019-08-08 07:57] LABS: ACT PARTIAL THROMBO TIME 29.3 SECONDS (20.0-32.1); INTERNATIONAL NORM RATIO 0.9 (2.0-3.5)
[2019-08-08 08:00] VITALS: BP 142/88
[2019-08-08 08:15] LABS: VITAMIN D, 25-HYDROXY 24.6 ng/mL (30-100)
[2019-08-08] MEDS ORDERED: LOPRESSOR50 M1 PO (08:50)
== END 2019-08-08 10:20 | disposition home or self-care (01) | DRG 309 ==
LOC: ED 15:12 → EDHOLD 19:30 → 5E 19:30
PROVIDERS: Internal Medicine; Nurse Practitioner Family; ADMIT Internal Medicine
DX: R00.0 Tachycardia, unspecified (principal); R65.10 Systemic inflammatory response syndrome (SIRS) of non-infectious origin without acute organ dysfunction; E44.1 Mild protein-calorie malnutrition; I44.0 Atrioventricular block, first degree; I10 Essential (primary) hypertension; M54.9 Dorsalgia, unspecified; G89.29 Other chronic pain; F51.01 Primary insomnia; D64.9 Anemia, unspecified; E87.6 Hypokalemia; D72.825 Bandemia; E86.0 Dehydration; E83.39 Other disorders of phosphorus metabolism; K21.9 Gastro-esophageal reflux disease without esophagitis; F41.9 Anxiety disorder, unspecified; F32.9 Major depressive disorder, single episode, unspecified; Z88.0 Allergy status to penicillin; Z79.82 Long term (current) use of aspirin; Z90.49 Acquired absence of other specified parts of digestive tract; Z82.49 Family history of ischemic heart disease and other diseases of the circulatory system; Z83.3 Family history of diabetes mellitus; Z82.3 Family history of stroke; Z79.899 Other long term (current) drug therapy; Z71.6 Tobacco abuse counseling; Z68.27 Body mass index [BMI] 27.0-27.9, adult; N18.3 Chronic kidney disease, stage 3 (moderate)